=== PATIENT | male | born 1940 | race Hispanic/Latino ===

== ENCOUNTER → 2022-12-30 | Outpatient (CLI) | payer MEDICARE ==
[~2022-12-30] MED LIST: IOPAMIDOL 370 MG/ML 100 ML INFUS..BTL INJ ONE
[2022-12-30 09:38] LABS: CREATININE, SERUM 0.93 mg/dL (0.72-1.25)
== END ==
LOC: NM 08:19
PROVIDERS: ATTEND Urology
DX: C61 Malignant neoplasm of prostate (principal)
CPT/HCPCS: 36415; 72193; 78306; 82565; 84520; A9503; Q9967